=== PATIENT | female | born 1960 | race Caucasian/White ===

== ENCOUNTER 2019-10-25 14:15 | Emergency (ER) | payer OTHER ==
[~2019-10-25] VITALS: Ht 170.2 cm; Wt 113.6 kg
[~2019-10-25 14:15] MED LIST: CA C1TAB73 PO; CLON1TAB PO; LAMO300T PO; LEVO50TA4 PO; QUET100T PO; QUET25TA PO
[2019-10-25] MEDS ORDERED: AMOX TR/POT CLAV 875 MG/125 MG TABLET PO ONE (15:15)
[2019-10-25] MEDS ORDERED: KETOROLAC TROMETHAMINE 60 MG/2 ML VIAL IM ONE (15:15)
[2019-10-25] MEDS ORDERED: HYDROCODONE/ACETAMINOPHEN 10-325 MG TABLET PO ONE (15:15)
[2019-10-25 15:30] VITALS: BP 118/75
== END 2019-10-25 15:32 | disposition home or self-care (01) ==
LOC: EMS 14:25
DX: K04.7 Periapical abscess without sinus (principal); F31.9 Bipolar disorder, unspecified; F17.210 Nicotine dependence, cigarettes, uncomplicated; Z90.710 Acquired absence of both cervix and uterus
CPT/HCPCS: 96372; 99283; J1885